=== PATIENT | male | born 1985 | race Hispanic/Latino ===

== ENCOUNTER 2016-11-23 09:51 | Emergency (ER) | payer SELFPAY ==
[~2016-11-23] VITALS: Ht 172.7 cm; Wt 70.0 kg
[2016-11-23 10:39] LABS: HEMATOCRIT 49.8 % (39.0-50.0); HEMOGLOBIN 17.5 g/dl (14.0-18.0); IMMATURE GRANULOCYTES 0.3 % (0.0-1.0); MEAN CELL VOLUME 84.4 fL CALC (80.0-100.0); MEAN CORPUSCULAR HGB 29.7 pG CALC (26.0-32.0); MEAN CORPUSCULAR HGB CONC 35.1 g/L CALC (32.0-36.0); NEUT# 7.93 thou/uL (1.82-7.42); RED BLOOD COUNT 5.9 mill/uL (4.70-6.10); RED CELL DISTRI WIDTH 12.5 % (11.5-15.5)
[2016-11-23 10:52] LABS: ALBUMIN 4.7 g/dL (3.2-5.0); ALKALINE PHOSPHATASE 77 u/l (38-126); ANION GAP 17 (6-22 (CALC)); BILIRUBIN, TOTAL 1.1 mg/dL (0.0-1.4); BUN 14 mg/dL (9-20); BUN/CREATININE RATIO 18 (12-20 (CALC)); CALCIUM 10.3 mg/dL (8.4-10.2); CARBON DIOXIDE 28 mmol/l (22-30); CHLORIDE 99 mmol/l (95-108); CREATININE 0.8 mg/dL (0.7-1.3); GFR > 60 ML/MIN (>=60 (CALC)); GFR FOR AFR.AMER. > 60 ML/MIN (>=60 (CALC)); GLUCOSE 411 mg/dL (75-110); POTASSIUM 5.1 mmol/l (3.5-5.1); SGOT/AST 22 u/l (17-59); SGPT/ALT 36 u/l (21-72); SODIUM 138 mmol/l (137-146); TOTAL PROTEIN 7.6 g/dL (6.3-8.2)
[2016-11-23 12:12] VITALS: BP 101/70
== END 2016-11-23 12:12 | disposition home or self-care (01) | DRG 639 ==
LOC: ED 09:51
PROVIDERS: Emergency Medicine
DX: E11.65 Type 2 diabetes mellitus with hyperglycemia (principal); R94.31 Abnormal electrocardiogram [ECG] [EKG]; Z79.4 Long term (current) use of insulin; Z91.14 Patient's other noncompliance with medication regimen

== ENCOUNTER 2019-02-07 16:00 | Emergency (ER) | payer OTHER ==
[~2019-02-07] VITALS: Ht 172.7 cm; Wt 84.0 kg
[2019-02-07] MEDS ORDERED: NOVOLOG100 UNIT/M SC (16:21)
[2019-02-07] MEDS ORDERED: LEVEMIR100 UNIT/M SC (16:30)
[2019-02-07] MEDS ORDERED: ORPHENADRINE C100 M1 PO (19:42)
[2019-02-07] MEDS ORDERED: IBUPROFEN600 MG PO (19:42)
[2019-02-07 19:50] VITALS: BP 109/59
== END 2019-02-07 19:50 | disposition home or self-care (01) | DRG 605 ==
LOC: ED 16:00
DX: S10.93XA Contusion of unspecified part of neck, initial encounter (principal); S30.0XXA Contusion of lower back and pelvis, initial encounter; E11.9 Type 2 diabetes mellitus without complications; W01.198A Fall on same level from slipping, tripping and stumbling with subsequent striking against other object, initial encounter; Y92.89 Other specified places as the place of occurrence of the external cause; Y99.0 Civilian activity done for income or pay; Z79.4 Long term (current) use of insulin

== ENCOUNTER 2020-04-21 20:39 | Emergency (ER) | payer SELFPAY ==
[~2020-04-21] VITALS: Ht 172.7 cm; Wt 72.0 kg
[~2020-04-21 20:39] MED LIST: IBUPROFEN600 MG PO; LEVEMIR100 UNIT/M SC; NOVOLOG100 UNIT/M SC; ORPHENADRINE C100 M1 PO; ULTRAM50 M1 PO
[2020-04-21] MEDS ORDERED: (None)3.5 GM OS (21:45)
[2020-04-21] MEDS ORDERED: GENTAMICIN SULF5 ML OS (21:45)
[2020-04-21] MEDS ORDERED: SIMVASTATIN40 MG PO (21:54)
[2020-04-21 22:20] VITALS: BP 132/86
== END 2020-04-21 22:08 | disposition home or self-care (01) | DRG 125 ==
LOC: ED 20:39
DX: S05.02XA Injury of conjunctiva and corneal abrasion without foreign body, left eye, initial encounter (principal); E11.9 Type 2 diabetes mellitus without complications; F17.200 Nicotine dependence, unspecified, uncomplicated; X58.XXXA Exposure to other specified factors, initial encounter; Y93.89 Activity, other specified; Y92.009 Unspecified place in unspecified non-institutional (private) residence as the place of occurrence of the external cause; Z79.4 Long term (current) use of insulin